=== PATIENT | male | born 1980 | race American Indian/Alaskan Native ===

== ENCOUNTER 2019-03-24 21:24 | Emergency (ER) | payer OTHER ==
[2019-03-24 21:47] VITALS: BP 126/68
[2019-03-24] MEDS ORDERED: IBUPROFEN 600 MG TAB PO ONE (22:46)
[2019-03-24] MEDS ORDERED: ACETAMINOPHEN 500 MG TAB PO ONE (22:46)
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
== END 2019-03-25 00:25 | disposition home or self-care (01) ==
LOC: ED 21:24
DX: M54.2 Cervicalgia (principal); M54.5 Low back pain; Z79.899 Other long term (current) drug therapy; V89.2XXA Person injured in unspecified motor-vehicle accident, traffic, initial encounter; Y93.89 Activity, other specified; Y92.488 Other paved roadways as the place of occurrence of the external cause; Y99.8 Other external cause status
CPT/HCPCS: 72040; 72100; 99283